=== PATIENT | female | born 1985 | race Caucasian/White ===

== ENCOUNTER 2017-06-06 13:00 | Inpatient (IN) | payer OTHER ==
[~2017-06-06] VITALS: Ht 160 cm; Wt 74.8 kg
[2017-06-06] MEDS ORDERED: SODIUM CHLORIDE 0.9% 1000ML 1,000 ML ONE (13:38)
[2017-06-06] MEDS ORDERED: SODIUM CHLORIDE 0.9% 1000ML 1,000 ML IV SCH ×2 (13:45→15:00)
[2017-06-06 13:58] LABS: BASOPHILS % 0.2 % (0.0-1.0); HEMATOCRIT 34.4 % (34.2-44.1); HEMOGLOBIN 11.5 g/dL (12.0-16.0); LYMPHOCYTES % 7.6 % (18.0-39.1); MEAN CORPUSCULAR HEMOGLOBIN 30.4 pg (28-32); MEAN CORPUSCULAR HGB CONC 33.4 g/dL (31-35); MONOCYTES # (AUTO) 0.7 (0.2-0.8); NEUTROPHILS # (AUTO) 11.4 (2.1-6.9); NEUTROPHILS % 86.5 % (38.7-80.0); PLATELET COUNT 394 x10e3/uL (140-360); RED BLOOD COUNT 3.78 x10e6/uL (3.6-5.1); RED CELL DISTRIBUTION WIDTH 14.2 % (11.7-14.4)
[2017-06-06] MEDS ORDERED: DIATRIZOATE MEGL/DIATRIZOA SOD 30 ML BTL PO ONE (14:01)
[2017-06-06] MEDS ORDERED: SODIUM CHLORIDE 0.9% 1000ML 1,000 ML IV STA ×2 (14:01→14:54)
[2017-06-06 14:06] LABS: INR 1.15; PARTIAL THROMBOPLASTIN TIME 26.4 seconds (23.8-35.5); PROTHROMBIN TIME 13.8 seconds (11.9-14.5)
[2017-06-06 14:14] LABS: ALANINE AMINOTRANSFERASE 58 IU/L (0-55); ALBUMIN 3.4 g/dL (3.5-5.0); ALBUMIN/GLOBULIN RATIO 1.1 (0.8-2.0); ALKALINE PHOSPHATASE 33 IU/L (40-150); AMYLASE 19 U/L (25-125); ANION GAP 10.9 mmol/L (8-16); BLOOD UREA NITROGEN 15 mg/dL (7-26); BUN/CREATININE RATIO 18 (6-25); CALCIUM 9.3 mg/dL (8.4-10.2); CARBON DIOXIDE 22 mmol/L (22-29); CHLORIDE 107 mmol/L (98-107); CREATININE, SERUM 0.83 mg/dL (0.57-1.11); EST GLOMERULAR FILTRATION RATE > 60 ML/MIN (60-); GLUCOSE 158 mg/dL (74-118); LIPASE 6 U/L (8-78); MAGNESIUM 1.8 MG/DL (1.3-2.1); POTASSIUM 3.9 mmol/L (3.5-5.1); SODIUM 136 mmol/L (136-145)
[2017-06-06 14:20] LABS: HCG,QUANTITATIVE < 1.20 mIU/mL (0-10)
[2017-06-06] MEDS ORDERED: ASPIRIN 81 MG CHEW TAB PO ONE (15:30)
[2017-06-06] MEDS ORDERED: DIPHENHYDRAMINE HCL INJ 50 MG/ML VIAL IV ONE (15:45)
[2017-06-06 15:49] LABS: CREATINE KINASE 59 IU/L (29-168)
[2017-06-06] MEDS ORDERED: SODIUM CHLORIDE 0.9% 250ML 250 ML IV ONE ×4 (16:15→16:45)
--- NOTE | 2017-06-06 16:16 | Diagnostic Imaging Report ---
PROCEDURE:CT ABDOMEN AND PELVIS WITH CONTRAST COMPARISON:None. INDICATIONS:LOWER ABDOMINAL PAIN TECHNIQUE: Multidetector CT scanning of the abdomen and pelvis was performed after the administration of 100 cc of nonionic contrast. Coronal and sagittal reformations were obtained. Routine protocol performed. FINDINGS: Lung bases: Clear. Visualized portion of the mediastinum is normal. Peritoneum/Retroperitoneum: Large hemoperitoneum concentrated in the pelvis. There are several foci of hypervascularity in the right pelvis measuring up to 7 mm (axial image 71, coronal image 51) consistent with active bleed. There is free fluid throughout the upper abdomen. There is no evidence of free air. Liver: Mildly decreased in attenuation suggestive steatosis. No mass. Biliary: Gallbladder and biliary tree are normal. Spleen: Normal size and attenuation without mass. Pancreas: The pancreas tail and distal body are markedly atrophic. Remaining parenchyma is normal in attenuation without mass or ductal dilatation. Adrenal Glands: No mass. Kidneys: Symmetric enhancement. No hydronephrosis. No mass. Gastrointestinal: The stomach, small bowel, and large bowel are normal in diameter and wall thickness. Enteric contrast is present throughout. The appendix is not visualized. Vasculature: Aorta and IVC are normal in diameter. Bladder: Well-distended and contains a droplet nondependent air at the dome. No wall thickening. Reproductive organs: The uterus is present and lobulated contour suggestive of fibroids. Neither ovary is visualized with certainty due to the presence of blood. Musculoskeletal: The unremarkable for age. Soft tissues are unremarkable. CONCLUSION: 1. Hemoperitoneum concentrated in the pelvis with several small foci of active bleeding in the right pelvis. The organ of origin cannot be determined. The differential is extensive, including ruptured ovarian cyst/mass, ruptured ectopic , uterine injury or injury to the mid/distal sigmoid colon or proximal rectum. Mesenteric injury is also included in the differential. 2. No evidence of bowel obstruction or inflammation. Non-visualization of the appendix. If there is no history of appendectomy, a ruptured appendix cannot be excluded. 3. Hepatic steatosis. 4. Atrophic distal body and tail of the pancreas may be congenital. Findings discussed with the ER at 1613 hours. Dictated by: Domi Cage M.D. on 06/06/2017 at 16:17 Electronically approved by: Domi Cage M.D. on 06/06/2017 at 16:17
[2017-06-06 16:40] LABS: HEMATOCRIT 30.2 % (34.2-44.1)
[2017-06-06] MEDS ORDERED: CEFOXITIN 2GM/ D5W 50ML 50 ML IV ONE (16:45)
[2017-06-06] MEDS ORDERED: ONDANSETRON HCL 4 MG ORAL DISINTEGRATING TAB PO STA (16:58)
--- OUTSIDE RECORDS SUMMARY | 2017-06-06 17:11 | XMS REPORT ---
Author Author [facility] Address Unknown Phone Unavailable Care Team Providers Care Product Safety Tester Name Role Phone DEVANTE TOTH Unavailable Unavailable Problems This patient has no known problems. Allergies, Adverse Reactions, Alerts This patient has no known allergies or adverse reactions. Medications This patient has no known medications. Results Test Description Test Time Test Comments Text Results Atomic Results Result Comments CT ABDOMEN/PELVIS W [place] [address] Patient Name: CHARO GALLEGO MR #: [id number] : 1985 Age/Sex: 31/F Req #: [id number] [facility] Physician: Ordered by: LISA ABDI [employer] Report #: [id number] Location: ER Room/Bed: Procedure: [id number] CT/CT ABDOMEN/PELVIS W Exam Date: 06/06/17 Exam Time: 1530 REPORT STATUS: Signed PROCEDURE: CT ABDOMEN AND PELVIS WITH CONTRAST COMPARISON: None. INDICATIONS: LOWER ABDOMINAL PAIN TECHNIQUE: Multidetector CT scanning of the abdomen and pelvis was performed after the administration of 100 cc of nonionic contrast. Coronal and sagittal reformations were obtained. Routine protocol performed. FINDINGS: Lung bases: Clear. Visualized portion of the mediastinum is normal. Peritoneum/Retroperitoneum: Large hemoperitoneum concentrated in the pelvis. There are several foci of hypervascularity in the right pelvis measuring up to 7 mm (axial image 71, coronal image 51) consistent with active bleed. There is free fluid throughout the upper abdomen. There is no evidence of free air. Liver: Mildly decreased in attenuation suggestive steatosis. No mass. Biliary: Gallbladder and biliary tree are normal. Spleen: Normal size and attenuation without mass. Pancreas : The pancreas tail and distal body are markedly atrophic. Remaining parenchyma is normal in attenuation without mass or ductal dilatation. Adrenal Glands: No mass. Kidneys: Symmetric enhancement. No hydronephrosis. No mass. Gastrointestinal: The stomach, small bowel, and large bowel are normal in diameter and wall thickness. Enteric contrast is present throughout. The appendix is not visualized. Vasculature: Aorta and IVC are normal in diameter. Bladder: Well-distended and contains a droplet nondependent air at the dome. No wall thickening. Reproductive organs: The uterus is present and lobulated contour suggestive of fibroids. Neither ovary is visualized with certainty due to the presence of blood. Musculoskeletal: The unremarkable for age. Soft tissues are unremarkable. CONCLUSION: 1. Hemoperitoneum concentrated in the pelvis with several small foci of active bleeding in the right pelvis. The organ of origin cannot be determined. The differential is extensive, including ruptured ovarian cyst/mass, ruptured ectopic , uterine injury or injury to the mid/distal sigmoid colon or proximal rectum. Mesenteric injury is also included in the differential. 2. No evidence of bowel obstruction or inflammation. Non-visualization of the appendix. If there is no history of appendectomy, a ruptured appendix cannot be excluded. 3. Hepatic steatosis. 4. Atrophic distal body and tail of the pancreas may be congenital. Findings discussed with the ER at 1613 hours. Dictated by: Jarocho Cage M.D. on 06/06/2017 at 16:17 Electronically approved by: Jarocho Cage M.D. on 06/06/2017 at 16:17 Dictated By: JAROCHO CAGE MD [id number] Transcribed By: MICHAEL on 06/06/171616 COPY TO: LISA ABDI NP
--- NOTE | 2017-06-06 17:41 | Pre Op History & Physical ---
CHIEF COMPLAINT: Lightheadedness, lower abdominal pain, syncopal episode, shock. HISTORY OF PRESENT ILLNESS: The patient is a pleasant 31-year-old female who was having sex this morning at home when she suddenly developed pain in the lower part of her abdomen. The patient denied the use of any foreign bodies during the sexual act. She denied any trauma, any falls. Her last menstrual period was 4 weeks ago. The patient states that after she developed the pain and felt lightheaded, she went to her primary care physician's office, who evaluated her and sent her to Patients emergency room. Apparently, according to the patient's history, she had a near syncopal episode in the physician's office. Upon arrival to the emergency room, the patient was found to be hypotensive with tachycardia, blood pressure in the 80s/60s. She was resuscitated with crystalloids and is in the process of getting a unit of packed RBCs. The patient had a CT scan of the abdomen that revealed significant amounts of blood throughout the abdomen with what appeared to be a point of extravasation in the pelvis on the right side of the uterus which contained a fibroid. The source of the bleeding appears to be coming from the pelvis, but we cannot pinpoint the exact location. There is no evidence of bleeding coming from the spleen, the liver. She does have a history of Crohn's disease, which is under control at this point. She had denied any rectal bleeding. PAST MEDICAL HISTORY: Significant for Crohn's disease. PAST SURGICAL HISTORY: Unremarkable. FAMILY HISTORY: Noncontributory. ALLERGIES: THE PATIENT IS ALLERGIC TO SULFA, IODINE AND VANCOMYCIN. CURRENT MEDICINES: Imuran,Ciazia,Lealda,Claritin,Flonase,Vitamin D. SOCIAL HISTORY: She drinks socially, does not smoke, denies the use of any illegal drugs. ROS: PHYSICAL EXAMINATION GENERAL: Reveals a 31-year-old female. She is pale. She is complaining of lower abdominal pain, but she is alert and oriented. VITAL SIGNS: At this point, her vital signs are stable. HEAD, EYES, EARS, NOSE AND THROAT: Examination reveals no active disease. NECK: Supple. LUNGS: Clear. HEART: Reveals regular sinus rhythm. ABDOMEN: Moderately obese with diffuse tenderness mainly in the lower part of the abdomen on the right side of the pelvis. There are no ecchymotic lee. Bowel sounds are absent. There are no surgical scars visible. VAGINAL: Examination with the speculum reveals no blood in the vagina. There is no blood coming out of the cervix. RECTAL: Examination was deferred, but there is no blood seen in the anus. EXTREMITIES: Examination reveals no clubbing, cyanosis or edema. NEUROLOGICAL: Nonfocal. ASSESSMENT: Intra-abdominal bleed, the etiology of which is unclear. According to the CAT scan, it appears to be coming from the pelvis on the right side but the actual source of the hemorrhage is unclear. The patient has been adequately resuscitated at this point with 3 liters of crystalloids and will be receiving a unit of blood while she waits to go to the operating room. The electrolytes are normal. The initial hematocrit was 34, but she has been resuscitated with crystalloids and the repeat is pending. The test is negative. PLAN: To proceed with exploratory laparotomy and related procedures as deemed necessary intraoperatively to control the bleeding. The patient and her agree with the need for emergency surgery. They understand that at this point, once we determine where the source of the bleeding is, then we will take appropriate action and agree with the plan for laparotomy. They did not object to the use of blood. Job#: [id number] MTDD
[2017-06-06] MEDS ORDERED: MEPERIDINE HCL INJ 50 MG/ML INJ ONE (19:27)
[2017-06-06] MEDS ORDERED: DIPHENHYDRAMINE HCL INJ 50 MG/ML VIAL IM PRN (19:45)
[2017-06-06] MEDS ORDERED: ONDANSETRON HCL INJ 2 MG/ML VIAL IV PRN ×2 (19:45)
[2017-06-06] MEDS ORDERED: NALOXONE HCL INJ 0.4 MG/ML AMP IV PRN (19:45)
[2017-06-06] MEDS ORDERED: ACETAMINOPHEN 1000 MG/100 ML IV PRN (19:45)
[2017-06-06] MEDS ORDERED: HYDROMORPHONE 0.2MG/ML-SOD CHL 30ML PCA SYRINGE IV ONE (19:49)
[2017-06-06 20:44] LABS: BASOPHILS % 0.1 % (0.0-1.0); HEMATOCRIT 30.1 % (34.2-44.1); HEMOGLOBIN 9.8 g/dL (12.0-16.0); LYMPHOCYTES # (AUTO) 0.6 (1.0-3.2); LYMPHOCYTES % 4.1 % (18.0-39.1); MEAN CORPUSCULAR HGB CONC 32.6 g/dL (31-35); MONOCYTES # (AUTO) 0.5 (0.2-0.8); MONOCYTES % 3.3 % (4.4-11.3); NEUTROPHILS # (AUTO) 13.3 (2.1-6.9); PLATELET COUNT 274 x10e3/uL (140-360); RED BLOOD COUNT 3.27 x10e6/uL (3.6-5.1)
[2017-06-06 21:15] VITALS: BP 115/60
[2017-06-06] MEDS ORDERED: SODIUM CHLORIDE 0.9% 50ML 50 ML ONE (21:32)
[2017-06-06] MEDS ORDERED: IOPAMIDOL 370 MG/ML 200 ML INFUS..BTL INJ ONE (21:32)
[2017-06-06 22:15] VITALS: BP 111/64
[2017-06-06] MEDS: PANTOPRAZOLE 40 MG 10ML VIAL IV SCH (22:24)
[2017-06-06] MEDS: SODIUM CHLORIDE 0.9% 250ML IRRIG IR SCH (22:24)
[2017-06-06] MEDS: SODIUM CHLORIDE 0.9% 1000ML 1,000 ML IV SCH (22:25)
--- NOTE | 2017-06-06 22:54 | Operative Report ---
DATE OF PROCEDURE: June 06, 2017 PREOPERATIVE DIAGNOSIS: Hemoperitoneum with shock. POSTOPERATIVE DIAGNOSIS: Hemoperitoneum with shock secondary to ruptured right ovarian cyst. PROCEDURE PERFORMED: Exploratory laparotomy, evacuation of hemoperitoneum with peritoneal irrigation and right salpingo-oophorectomy. BLEACHER KRAFT PULP: Trent San MD and KOBY Mejia. ESTIMATED BLOOD LOSS: Minimal. DRAINS: None. COMPLICATIONS: None. INDICATIONS AND FINDINGS: The patient is a 31-year-old pleasant female who the morning of admission during intercourse developed severe lower abdominal pain and then went to see her primary care where she dizzy and nauseated, and passed out, and then the patient was sent to the emergency room. In the emergency room, she was resuscitated with Crystalloids. She had a CAT scan that revealed a large hemoperitoneum with blood in the right side of the pelvis. It was not clear the source of the bleeding. The liver and the spleen were normal. There was no evidence of any rupture or hematoma in those locations. The patient had a history of Crohn's disease. She was taking multiple medicines for it. She denied the use of any foreign bodies during the sexual intercourse. INTRAOPERATIVE FINDINGS: The patient had at least 1250 mL of blood and clot throughout the abdomen and the general exploration of the of the abdomen revealed that the source of the bleeding was the ruptured cyst in the right ovary. The uterus contained 2 fibroids in the fundus. The left ovary was normal. There was no evidence of any trauma to the uterus or to the pelvic peritoneal reflection. DESCRIPTION OF PROCEDURE: With the patient lying on the operating table in the supine position after administration of general endotracheal anesthesia, she was prepped and draped for exploratory laparotomy. The abdomen was entered via midline infraumbilical incision. Upon entering the abdomen, we found large amount of blood and clots that were removed. We then went ahead and packed the pelvis and were able to identify on removal of the pack the bleeding was coming from the right ovary with the left ovary being normal. There was no other evidence of trauma, bleeding of perforation. The fibroids in the uterus were about 3 cm or less. Those were left alone. At this point, we then performed right salpingo-oophorectomy. The blood supply to the right ovary was tied off with 0 silk and suture ligature with 0 Vicryl. The tube was tied off with 0 Vicryl also and then the suspensory ligament of the ovary was transected and tied off with 0 Vicryl and the specimen was then detached and sent for pathological evaluation. We then completed the irrigation of the abdomen, removed as much blood and clot as we could and inspected the small bowel and appeared to be normal. We inspected through this incision the liver and palpated it and there was no evidence of any trauma. The spleen was seen in the left upper quadrant and in an attempt to examine it given the circumstances of the case. The NG tube was palpated in the stomach and taped there. We then inspected the pelvis again and there was no bleeding. There was no evidence of retroperitoneal hematoma along the pelvic vessels. At this point, after the sponge and instrument count were pronounced correct, we placed a 10 mm flat Merrill-Skelton drain to drain the cul-de-sac posteriorly and then brought it out through a stab wound in the right lower quadrant secured there with 2-0 silk. We then closed the abdomen in 2 layers using 0 Vicryl for the peritoneum and posterior sheath and we then closed the anterior fascia with a running 1 Vicryl. The wound was copiously irrigated with saline and bleeding points were cauterized. Then we went ahead and closed the subcutaneous tissue with 2-0 Vicryl and the skin was closed with radha. Sterile dressing was applied. The patient tolerated the procedure well and was taken to the recovery room in stable condition. Job#: [id number]
[2017-06-06 22:57] VITALS: BP 111/64
[2017-06-07] VITALS (8 sets, daily range): BP systolic 85–121; BP diastolic 48–64
[2017-06-07] MEDS ORDERED: CEFOXITIN 1GM/ DEXTROSE 50ML 50 ML IV SCH
[2017-06-07] MEDS: CEFOXITIN SOD 1 GM VIAL IV SCH ×5 (00:19→23:19)
[2017-06-07] MEDS ORDERED: CIMZIA SC (03:04)
[2017-06-07] MEDS ORDERED: LIALDA (03:04)
[2017-06-07] MEDS ORDERED: LORATADINE10 MG PO (03:04)
[2017-06-07] MEDS ORDERED: Flonase (03:04)
[2017-06-07] MEDS ORDERED: IMURAN (03:04)
[2017-06-07] MEDS: HYDROMORPHONE 0.2MG/ML-SOD CHL 30ML PCA SYRINGE IV PRN ×2 (05:45→13:41)
[2017-06-07] MEDS: SODIUM CHLORIDE 0.9% 250ML IRRIG IR SCH (05:45)
[2017-06-07 06:52] LABS: BASOPHILS % 0.1 % (0.0-1.0); EOSINOPHILS % 0.3 % (0.0-6.0); HEMATOCRIT 25.7 % (34.2-44.1); HEMOGLOBIN 8.8 g/dL (12.0-16.0); LYMPHOCYTES # (AUTO) 1.2 (1.0-3.2); LYMPHOCYTES % 10.8 % (18.0-39.1); MEAN CORPUSCULAR HGB CONC 34.2 g/dL (31-35); MEAN CORPUSCULAR VOLUME 90.5 fL (81-99); NEUTROPHILS # (AUTO) 8.7 (2.1-6.9); NEUTROPHILS % 79.4 % (38.7-80.0); PLATELET COUNT 277 x10e3/uL (140-360); RED BLOOD COUNT 2.84 x10e6/uL (3.6-5.1); RED CELL DISTRIBUTION WIDTH 15.6 % (11.7-14.4)
[2017-06-07] MEDS: SODIUM CHLORIDE 0.9% 1000ML 1,000 ML IV SCH ×2 (07:06→15:36)
[2017-06-07 07:16] LABS: BLOOD UREA NITROGEN 8 mg/dL (7-26); BUN/CREATININE RATIO 12 (6-25); CALCIUM 7.3 mg/dL (8.4-10.2); CARBON DIOXIDE 19 mmol/L (22-29); CHLORIDE 111 mmol/L (98-107); CREATININE, SERUM 0.65 mg/dL (0.57-1.11); EST GLOMERULAR FILTRATION RATE > 60 ML/MIN (60-); GLUCOSE 122 mg/dL (74-118); SODIUM 136 mmol/L (136-145)
[2017-06-07] MEDS ORDERED: AZATHIOPRINE50 MG PO (09:28)
[2017-06-07] MEDS ORDERED: mesalamine PO (09:28)
[2017-06-07] MEDS ORDERED: vitamin d3 PO (09:28)
[2017-06-07] MEDS ORDERED: MULTI-VITAMIN1 EACH PO (09:28)
[2017-06-07] MEDS ORDERED: SUCCINYLCHOLINE CHLORIDE 20 MG/ML 10ML VIAL IV ONE (14:06)
[2017-06-07] MEDS ORDERED: DEXAMETHASONE SOD PHOS INJ 4 MG/ML VIAL IV ONE (14:06)
[2017-06-07] MEDS ORDERED: ONDANSETRON HCL INJ 2 MG/ML VIAL IV ONE (14:06)
[2017-06-07] MEDS ORDERED: DESFLURANE 240 ML BTL INH ONE (14:06)
[2017-06-07] MEDS ORDERED: ROCURONIUM BROMIDE 10 MG/ML 5ML VIAL IV ONE (14:06)
[2017-06-07] MEDS ORDERED: FENTANYL CITRATE/PF 100MCG/2 ML INJ IJ ONE (14:17)
[2017-06-07] MEDS ORDERED: MIDAZOLAM HCL 2 MG/2 ML VIAL INJ ONE (14:18)
[2017-06-07] MEDS ORDERED: ONDANSETRON HCL 4 MG ORAL DISINTEGRATING TAB SL PRN (16:00)
[2017-06-07] MEDS ORDERED: CHOLECALCIFEROL 1,000 UNIT TAB PO SCH (16:30)
[2017-06-07] MEDS ORDERED: MESALAMINE 400 MG CAP PO SCH (16:30)
[2017-06-07] MEDS: PANTOPRAZOLE 40 MG 10ML VIAL IV SCH (19:45)
[2017-06-08] VITALS (7 sets, daily range): BP systolic 97–124; BP diastolic 58–65
[2017-06-08] MEDS ORDERED: ACETAMINOPHEN 325 MG TAB PO PRN (00:45)
[2017-06-08] MEDS: SODIUM CHLORIDE 0.9% 1000ML 1,000 ML IV SCH ×2 (01:36→12:42)
[2017-06-08] MEDS: ACETAMINOPHEN 325 MG TAB PO PRN (01:46)
[2017-06-08] MEDS: SODIUM CHLORIDE 0.9% 250ML IRRIG IR SCH (03:45)
[2017-06-08] MEDS: CEFOXITIN SOD 1 GM VIAL IV SCH (05:20)
[2017-06-08 06:17] LABS: BASOPHILS % 0.1 % (0.0-1.0); HEMATOCRIT 24.2 % (34.2-44.1); HEMOGLOBIN 8.1 g/dL (12.0-16.0); LYMPHOCYTES # (AUTO) 1.1 (1.0-3.2); LYMPHOCYTES % 11.7 % (18.0-39.1); MEAN CORPUSCULAR HEMOGLOBIN 30.5 pg (28-32); MEAN CORPUSCULAR HGB CONC 33.5 g/dL (31-35); MONOCYTES # (AUTO) 0.8 (0.2-0.8); MONOCYTES % 9.3 % (4.4-11.3); NEUTROPHILS % 78.2 % (38.7-80.0); PLATELET COUNT 226 x10e3/uL (140-360); RED BLOOD COUNT 2.66 x10e6/uL (3.6-5.1); RED CELL DISTRIBUTION WIDTH 15.5 % (11.7-14.4)
[2017-06-08] MEDS: HYDROMORPHONE 0.2MG/ML-SOD CHL 30ML PCA SYRINGE IV PRN ×2 (07:10→17:10)
[2017-06-08] MEDS ORDERED: LORATADINE 10 MG TAB PO SCH ×2 (09:00→21:00)
[2017-06-08] MEDS ORDERED: CIMZIA SC SCH (09:30)
[2017-06-08] MEDS ORDERED: [UNRECOGNIZED DRUG - OTHER] PO SCH (16:30)
[2017-06-08] MEDS ORDERED: VITAMIN D3 2000 UNIT PO SCH (16:30)
[2017-06-08] MEDS: LORATADINE 10 MG TAB PO SCH (17:09)
[2017-06-08] MEDS: CHOLECALCIFEROL 1,000 UNIT TAB PO SCH (17:09)
[2017-06-08] MEDS: MULTIVITAMINS/MINERALS TAB PO SCH (17:09)
[2017-06-08] MEDS: MESALAMINE 400 MG CAP PO SCH (17:09)
[2017-06-08] MEDS: AZATHIOPRINE 50 MG TAB PO SCH (17:09)
[2017-06-08] MEDS: PANTOPRAZOLE 40 MG 10ML VIAL IV SCH (19:20)
[2017-06-09] VITALS (8 sets, daily range): BP systolic 100–152; BP diastolic 61–77
[2017-06-09] MEDS: ACETAMINOPHEN 325 MG TAB PO PRN ×3 (00:55→20:27)
[2017-06-09] MEDS: SODIUM CHLORIDE 0.9% 1000ML 1,000 ML IV SCH ×2 (01:04→13:21)
[2017-06-09 05:48] LABS: BASOPHILS % 0.1 % (0.0-1.0); EOSINOPHILS # (AUTO) 0.1 (0.0-0.4); EOSINOPHILS % 1.6 % (0.0-6.0); HEMATOCRIT 23.4 % (34.2-44.1); HEMOGLOBIN 7.7 g/dL (12.0-16.0); LYMPHOCYTES # (AUTO) 1.5 (1.0-3.2); LYMPHOCYTES % 21.3 % (18.0-39.1); MEAN CORPUSCULAR HEMOGLOBIN 30.4 pg (28-32); MEAN CORPUSCULAR HGB CONC 32.9 g/dL (31-35); MEAN CORPUSCULAR VOLUME 92.5 fL (81-99); MONOCYTES # (AUTO) 0.6 (0.2-0.8); MONOCYTES % 9.2 % (4.4-11.3); NEUTROPHILS # (AUTO) 4.7 (2.1-6.9); NEUTROPHILS % 67.4 % (38.7-80.0); PLATELET COUNT 232 x10e3/uL (140-360); RED BLOOD COUNT 2.53 x10e6/uL (3.6-5.1)
[2017-06-09] MEDS: HYDROMORPHONE 0.2MG/ML-SOD CHL 30ML PCA SYRINGE IV PRN (07:21)
[2017-06-09] MEDS: AZATHIOPRINE 50 MG TAB PO SCH (16:51)
[2017-06-09] MEDS: MESALAMINE 400 MG CAP PO SCH (16:51)
[2017-06-09] MEDS: MULTIVITAMINS/MINERALS TAB PO SCH (16:51)
[2017-06-09] MEDS: LORATADINE 10 MG TAB PO SCH (16:51)
[2017-06-09] MEDS: CHOLECALCIFEROL 1,000 UNIT TAB PO SCH (16:51)
[2017-06-09] MEDS: PANTOPRAZOLE 40 MG 10ML VIAL IV SCH (20:20)
[2017-06-10] VITALS: BP 117/76
[2017-06-10] MEDS ORDERED: HYDROMORPHONE 1MG/1ML INJ IV PRN (02:00)
[2017-06-10 04:00] VITALS: BP 119/68
[2017-06-10] MEDS: SODIUM CHLORIDE 0.9% 1000ML 1,000 ML IV SCH (04:07)
[2017-06-10] MEDS: HYDROCODONE/APAP 7.5MG-325MG 1 EA TAB PO PRN ×3 (06:01→13:21)
[2017-06-10 08:27] VITALS: BP 111/68
[2017-06-10 09:46] VITALS: BP 111/68
[2017-06-10] MEDS ORDERED: TYLENOL WITH C1 EACH PO (12:58)
--- NOTE | 2017-06-10 17:41 | Discharge Summary ---
DISCHARGE DIAGNOSES 1. Ruptured ovarian cyst with hemoperitoneum and shock. 2. History of Crohn's disease on immunosuppression. PROCEDURES: Performed on admission, 06/06/2017, by Dr. Liz San: 1. Exploratory laparotomy. 2. Evacuation of hemoperitoneum. 3. Right salpingo-oophorectomy. HISTORY OF PRESENT ILLNESS AND HOSPITALIZATION COURSE: The patient is a pleasant, 31-year-old female who the day of admission developed sudden onset of right-sided lower abdominal pain during sexual intercourse. She came to the emergency room where a CT scan revealed hemoperitoneum. The patient was in shock and was resuscitated. The patient was taken immediately to the operating room and was found to have a ruptured right ovarian cyst with a large hemoperitoneum about 1200 mL. Laparotomy and right salpingo-oophorectomy were performed, and hemoperitoneum was evacuated. The patient's postoperative course was unremarkable. She had a drain that was removed the day of discharge. The output was serosanguineous. The hemoglobin and hematocrit were stable. She was discharged home afebrile and tolerating a full liquid diet well. Her drain was removed. Discharge medication is Tylenol No. 3 one p.o. q.4-6 h. p.r.n. for pain. She was given instructions not to do any lifting and no work tolerance. She is to follow up in my office on following the discharge. LIZ SAN MD Job#: [id number]
== END 2017-06-10 13:26 | disposition home or self-care (01) | DRG 742 ==
LOC: ER 13:00 → OR 17:09 → MED/SURG 22:12
PROVIDERS: ADMIT Surgery; ATTEND Surgery
PROC: 0UT00ZZ Resection of Right Ovary, Open Approach (ICD-10-PCS; 2017-06-06)
PROC: 0W9G0ZZ Drainage of Peritoneal Cavity, Open Approach (ICD-10-PCS; 2017-06-06)
PROC: 30233N1 Transfusion of Nonautologous Red Blood Cells into Peripheral Vein, Percutaneous Approach (ICD-10-PCS; 2017-06-06)
PROC: 0UT50ZZ Resection of Right Fallopian Tube, Open Approach (ICD-10-PCS; principal; 2017-06-06 17:30)
CPT/HCPCS: 36415; 74177; 80048; 80053; 82150; 82550; 82553; 82948; 83605; 83690; 83735; 84484; 84702; 85014; 85018; 85025; 85610; 85730; 86850; 86900; 86920; 88304; 88305; 93005; 99285; J0330; J0694; J1100; J1200; J2175; J2250; J2405; J7030; J7050; P9016; Q9967